=== PATIENT | female | born 1975 | race Caucasian/White ===

== ENCOUNTER 2017-11-22 21:48 | Emergency (ER) | payer SELFPAY ==
[~2017-11-22] VITALS: Ht 162.6 cm; Wt 72.7 kg
[2017-11-22 21:50] VITALS: TEMP 97.4
[2017-11-22] MEDS ORDERED: CIPRO 500MG TA500 MG PO (22:05)
[2017-11-22 22:10] VITALS: BP 103/55; PULSE 89
== END 2017-11-22 22:10 | disposition home or self-care (01) ==
LOC: COL.ER 21:48
DX: H66.91 Otitis media, unspecified, right ear (principal); J40 Bronchitis, not specified as acute or chronic

== ENCOUNTER 2018-02-03 17:46 | Emergency (ER) | payer SELFPAY ==
[~2018-02-03] VITALS: Ht 162.6 cm; Wt 68.2 kg
[~2018-02-03 17:46] MED LIST: CIPRO 500MG TA500 MG PO
[2018-02-03 17:50] VITALS: TEMP 98
[2018-02-03 18:58] LABS: COLLECTION METHOD CLEAN CATCH
[2018-02-03 19:27] LABS: TRICYCLIC ANTIDEPRESS URINE NEGATIVE
[2018-02-03 19:32] LABS: MUCOUS Present /lpf; PH 5 (5-8); URINE APPEARANCE Hazy; URINE BACTERIA None Seen /hpf; URINE BILIRUBIN Positive (NEGATIVE); URINE BLOOD Negative (NEGATIVE); URINE CALCIUM OXALATE CRYSTAL Present /hpf; URINE COLOR Amber; URINE GLUCOSE Negative (NEGATIVE); URINE KETONE Negative (NEGATIVE); URINE LEUKOCYTE ESTERASE Trace (NEGATIVE); URINE NITRATE Negative (NEGATIVE); URINE PROTEIN(semi-quant) 2+ (NEGATIVE)
[2018-02-03] MEDS ORDERED: CEPHALEXIN500 M1 PO (20:30)
[2018-02-03 20:53] VITALS: BP 102/72; PULSE 83
== END 2018-02-03 20:54 | disposition home or self-care (01) ==
LOC: COL.ER 17:46
PROVIDERS: Physician Assistant
DX: T14.8XXA Other injury of unspecified body region, initial encounter (principal); F12.90 Cannabis use, unspecified, uncomplicated; F17.210 Nicotine dependence, cigarettes, uncomplicated